=== PATIENT | male | born 1960 | race Caucasian/White ===

== ENCOUNTER 2018-01-11 14:25 | Inpatient (IN) | payer OTHER ==
[~2018-01-11] VITALS: Ht 182.9 cm; Wt 82.3 kg
[~2018-01-11 14:25] MED LIST: ASPI81 PO; EMPA1TAB PO; GLUC1000 PO; METO50TA PO; POLY3.5O RIGHT EYE; ZOCO80TA PO
[2018-01-11 14:34] VITALS: BP 188/67; PULSE 88; RESP 17; TEMP 98.6; O2SAT 96
[2018-01-11] MEDS ORDERED: SODIUM CHLOR 0.9% 1000 ML INJ 1,000 ML IV ONE ×2 (14:51→17:15)
[2018-01-11 15:00] VITALS: O2SAT 100
[2018-01-11] MEDS ORDERED: SODIUM CHLORIDE 0.9% FLUSH 10 ML FLUSH IVF PRN (15:00)
--- NOTE | 2018-01-11 15:15 | PD ---
HPI Chief Complaint: Syncope/Near-Syncope Time Seen by Provider: 14:35 Travel History International Travel<30 days: No Contact w/Intl Traveler<30days: No Traveled to known affect area: No History of Present Illness HPI The patient is 57 years old and arrives to the ER with a complaint of near syncope. 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 He felt slightly dizzy at that point and then after lunch became much more dizzy. 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 The bilingual secretary there called EMS and he was brought here. Evidently his blood pressure was 80/40 on scene. He denies chest pain shortness of breath. No palpitation. He has a history of diabetes and is on metformin. He takes metoprolol for hypertension. He denies any recent change in medication. No recent illness. He reports drinking about 3-4 whiskies daily. PFSH Past Medical History Heart Rhythm Problems: No Cardiac Catheterization: Yes Cardiovascular Problems: Yes High Cholesterol: Yes Congestive Heart Failure: No Diabetes: Yes Diminished Hearing: No Hypertension: Yes Myocardial Infarction: No ?: Unknown Past Surgical History Coronary Artery Bypass Graft: No Coronary Stent: Yes Social History Alcohol Use: Yes (BEER AND WHISKEY DAILY) Tobacco Use: No (FORMER) Substance Use: No Allergies-Medications (Allergen,Severity, Reaction): Coded Allergies: No Known Allergies (Verified Allergy, Unknown, 01/11/18) Reported Meds & Prescriptions Reported Meds & Active Scripts Active Polysporin (Bacitracin/Polymyxin B Sulfate) 3.5 Gm Oint 1 Applic RIGHT EYE Q12 7 Days Reported Jardiance (Empagliflozin) 10 Mg Tab 1 Tab PO DAILY Glucophage 1000 mg (Metformin HCl) 1,000 Mg Tab 1,000 Mg PO DAILY Aspirin 81 Mg Tab 81 Mg PO DAILY Zocor 80 mg (Simvastatin) 80 Mg Tab 80 Mg PO HS Lopressor (Metoprolol Tartrate) 50 Mg Tab 50 Mg PO BID Review of Systems Except as stated in HPI: all other systems reviewed are Neg General / Constitutional: No: Fever Physical Exam Narrative GENERAL: 57-year-old male well-nourished well-developed no acute distress Vital Signs Date Time Temp Pulse Resp B/P (MAP) Pulse Ox O2 Delivery O2 Flow Rate FiO2 01/11/18 14:34 98.6 88 17 188/67 (107) 96 SKIN: Warm and dry. HEAD: Atraumatic. Normocephalic. EYES: Pupils equal and round. No scleral icterus. No injection or drainage. ENT: No nasal bleeding or discharge. Mucous membranes pink and moist. NECK: Trachea midline. No JVD. CARDIOVASCULAR: Regular rate and rhythm. RESPIRATORY: No accessory muscle use. Clear to auscultation. Breath sounds equal bilaterally. GASTROINTESTINAL: Abdomen soft, non-tender, nondistended. Hepatic and splenic margins not palpable. MUSCULOSKELETAL: Extremities without clubbing, cyanosis, or edema. No obvious deformities. NEUROLOGICAL: Awake and alert. No obvious cranial nerve deficits. Motor grossly within normal limits. Five out of 5 muscle strength in the arms and legs. Normal speech. PSYCHIATRIC: Appropriate mood and affect; insight and judgment normal. Data Data Last Documented VS Vital Signs Date Time Temp Pulse Resp B/P (MAP) Pulse Ox O2 Delivery O2 Flow Rate FiO2 01/11/18 15:00 100 Room Air 01/11/18 15:00 65 01/11/18 14:34 98.6 17 188/67 (107) Orders Orders Electrocardiogram (01/11/18 14:51) Complete Blood Count With Diff (01/11/18 14:51) Comprehensive Metabolic Panel (01/11/18 14:51) Magnesium (Mg) (01/11/18 14:51) B-Type Natriuretic Peptide (01/11/18 14:51) Ckmb (Isoenzyme) Profile (01/11/18 14:51) Troponin I (01/11/18 14:51) Act Partial Throm Time (Ptt) (01/11/18 14:51) Prothrombin Time / Inr (Pt) (01/11/18 14:51) Chest, Single Ap (01/11/18 14:51) Ct Brain W/O Iv Contrast(Rout) (01/11/18 14:51) Ecg Monitoring (01/11/18 14:51) Iv Access Insert/Monitor (01/11/18 14:51) Oximetry (01/11/18 14:51) Sodium Chloride 0.9% Flush (Ns Flush) (01/11/18 15:00) Sodium Chlor 0.9% 1000 Ml Inj (Ns 1000 M (01/11/18 14:51) Orthostatic Vital Signs (01/11/18 14:51) D-Dimer (01/11/18 14:51) CKMB (01/11/18 15:20) CKMB% (01/11/18 15:20) Sodium Chlor 0.9% 1000 Ml Inj (Ns 1000 M (01/11/18 17:15) Insulin Human Regular Inj (Novolin R Inj (01/11/18 17:15) Admit Order (Ed Use Only) (01/11/18 ) German Instructor / Telemetry RAH.Q8H (01/11/18 17:03) Vital Signs (Adult) Q4H (01/11/18 17:03) Diet 1999 Ada Cons Carb (01/11/18 Dinner) Activity Oob With Assistance (01/11/18 17:03) Labs Laboratory Tests Test 01/11/18 15:20 White Blood Count 8.4 TH/MM3 Red Blood Count 4.41 MIL/MM3 Hemoglobin 15.3 GM/DL Hematocrit 43.5 % Mean Corpuscular Volume 98.6 FL Mean Corpuscular Hemoglobin 34.7 PG Mean Corpuscular Hemoglobin Concent 35.3 % Red Cell Distribution Width 12.4 % Platelet Count 129 TH/MM3 Mean Platelet Volume 9.7 FL Neutrophils (%) (Auto) 82.8 % Lymphocytes (%) (Auto) 9.2 % Monocytes (%) (Auto) 6.5 % Eosinophils (%) (Auto) 1.2 % Basophils (%) (Auto) 0.3 % Neutrophils # (Auto) 6.9 TH/MM3 Lymphocytes # (Auto) 0.8 TH/MM3 Monocytes # (Auto) 0.5 TH/MM3 Eosinophils # (Auto) 0.1 TH/MM3 Basophils # (Auto) 0.0 TH/MM3 CBC Comment DIFF FINAL Differential Comment Prothrombin Time 11.0 SEC Prothromb Time International Ratio 1.1 RATIO Activated Partial Thromboplast Time 23.3 SEC D-Dimer Quantitative (PE/DVT) 0.29 MG/L FEU Blood Urea Nitrogen 36 MG/DL Creatinine 3.34 MG/DL Random Glucose 434 MG/DL Total Protein 7.3 GM/DL Albumin 3.8 GM/DL Calcium Level 11.1 MG/DL Magnesium Level 2.0 MG/DL Alkaline Phosphatase 58 U/L Aspartate Amino Transf (AST/SGOT) 84 U/L Alanine Aminotransferase (ALT/SGPT) 76 U/L Total Bilirubin 1.4 MG/DL Sodium Level 132 MEQ/L Potassium Level 4.5 MEQ/L Chloride Level 96 MEQ/L Carbon Dioxide Level 23.8 MEQ/L Anion Gap 12 MEQ/L Estimat Glomerular Filtration Rate 19 ML/MIN Total Creatine Kinase 136 U/L Creatine Kinase MB 4.5 NG/ML Troponin I LESS THAN 0.02 NG/ML MDM Medical Decision Making Medical Screen Exam Complete: Yes Emergency Medical Condition: Yes Medical Record Reviewed: Yes Differential Diagnosis Dehydration, electrolyte imbalance, renal failure, anemia Narrative Course CBC & BMP Diagram 01/11/18 15:20 Total Protein 7.3, Albumin 3.8, Calcium Level 11.1 H, Magnesium Level 2.0, Alkaline Phosphatase 58, Aspartate Amino Transf (AST/SGOT) 84 H, Alanine Aminotransferase (ALT/SGPT) 76, Total Bilirubin 1.4 H EKG shows no preexcitation or dysrhythmic morphology or ischemic injury pattern Patient has new onset renal failure of indeterminate etiology. Patient has acute kidney injury. 10 units insulin added on for hyperglycemia at 434 A second liter of saline added. d/w Dr Wallace for [facility] Diagnosis Primary Impression: Near syncope Additional Impressions: KENNEDY (acute kidney injury) DM2 (diabetes mellitus, type 2) Qualified Codes: E11.22 - Type 2 diabetes mellitus with diabetic chronic kidney disease; Z79.4 - long-term (current) use of insulin Dehydration Admitting Information Admitting Physician Requests: Admit Garry James MD January 11, 2018 15:14
[2018-01-11 15:50] LABS: AUTOMATED NEUTROPHIL # 6.9 TH/MM3 (1.8-7.7); BASOPHIL % 0.3 % (0.0-2.0); EOSINOPHIL # 0.1 TH/MM3 (0-0.4); EOSINOPHIL % 1.2 % (0.0-4.0); HEMATOCRIT 43.5 % (39.0-51.0); HEMOGLOBIN 15.3 GM/DL (13.0-17.0); LYMPH % 9.2 % (9.0-44.0); LYMPHOCYTE # 0.8 TH/MM3 (1.0-4.8); MEAN CELL VOLUME 98.6 FL (80.0-100.0); MEAN CORPUSCULAR HEMOGLOBIN 34.7 PG (27.0-34.0); MEAN CORPUSCULAR HGB CONC 35.3 % (32.0-36.0); MEAN PLATELET VOLUME 9.7 FL (7.0-11.0); MONO % 6.5 % (0.0-8.0); MONOCYTE # 0.5 TH/MM3 (0-0.9); NEUT % 82.8 % (16.0-70.0); PLATELET COUNT 129 TH/MM3 (150-450); RED BLOOD COUNT 4.41 MIL/MM3 (4.50-5.90); RED CELL DISTRIBUTION WIDTH 12.4 % (11.6-17.2); WHITE BLOOD COUNT 8.4 TH/MM3 (4.0-11.0)
[2018-01-11 16:15] LABS: ALBUMIN 3.8 GM/DL (3.4-5.0); ALKALINE PHOSPHATASE 58 U/L (45-117); ALT (GPT) 76 U/L (12-78); AST (GOT) 84 U/L (15-37); BICARBONATE 23.8 MEQ/L (21.0-32.0); BLOOD UREA NITROGEN 36 MG/DL (7-18); CALCIUM 11.1 MG/DL (8.5-10.1); CHLORIDE 96 MEQ/L (98-107); CREATININE 3.34 MG/DL (0.60-1.30); GLOMERULAR FILTRATION RATE 19 ML/MIN (>89); GLUCOSE,RANDOM 434 MG/DL (74-106); SODIUM (NA) 132 MEQ/L (136-145); TOTAL BILIRUBIN ADULT 1.4 MG/DL (0.2-1.0); TOTAL PROTEIN 7.3 GM/DL (6.4-8.2); TROPONIN I LESS THAN 0.02 NG/ML (0.02-0.05)
--- NOTE | 2018-01-11 16:21 | RADRPT ---
EXAM DATE/TIME: 01/11/2018 14:56 [facility] COMPARISON: No previous studies available for comparison. INDICATIONS : Dizzy, high blood pressure at work, brought in by evac MEDICAL HISTORY : Myocardial infarction. SURGICAL HISTORY : Coronary artery stent. ENCOUNTER: Initial ACUITY: 1 day PAIN SCORE: 0/10 LOCATION: Bilateral chest FINDINGS: A single view of the chest demonstrates the lungs to be symmetrically aerated without evidence of mas s, infiltrate or effusion. Minimal linear atelectasis or scarring laterally in the left lung base. He art size is borderline prominent but well compensated. Osseous structures are intact. CONCLUSION: 1. Minimal linear atelectasis/scarring laterally in the left lung base. Lungs are otherwise clear. 2. Heart size is borderline prominent but well compensated. Hardik Espinoza MD on January 11, 2018 at 16:18 Board Certified Radiologist. This report was verified electronically.
[2018-01-11 16:34] LABS: INTERNATIONAL NORMALIZED RATIO 1.1 RATIO
--- NOTE | 2018-01-11 16:34 | RADRPT ---
EXAM DATE/TIME: 01/11/2018 15:18 [facility] COMPARISON: No previous studies available for comparison. INDICATIONS : Dizziness RADIATION DOSE: 56.35 CTDIvol (mGy) MEDICAL HISTORY : Cardiovascular disease. Hypertension. Diabetes SURGICAL HISTORY : None. ENCOUNTER: Initial ACUITY: 1 day PAIN SCALE: 0/10 LOCATION: cranial TECHNIQUE: Multiple contiguous axial images were obtained of the head. Using automated exposure control and adj ustment of the mA and/or kV according to patient size, radiation dose was kept as low as reasonably a chievable to obtain optimal diagnostic quality images. DICOM format image data is available electro nically for review and comparison. FINDINGS: CEREBRUM: The ventricles are normal for age. No evidence of midline shift, mass lesion, hemorrhage or acute in farction. No extra-axial fluid collections are seen. POSTERIOR FOSSA: The cerebellum and brainstem are intact. The 4th ventricle is midline. The cerebellopontine angle i s unremarkable. EXTRACRANIAL: The visualized portion of the orbits is intact. SKULL: The calvaria is intact. No evidence of skull fracture. CONCLUSION: Negative exam. Hardik Espinoza MD on January 11, 2018 at 16:31 Board Certified Radiologist. This report was verified electronically.
[2018-01-11 16:45] LABS: D-DIMER 0.29 MG/L FEU (0.00-0.50)
--- NOTE | 2018-01-11 17:07 | HHI.HP ---
HPI Service [facility] Hospitalists Primary Care Physician Jose Gloria MD Admission Diagnosis near syncope, dehydration, KENNEDY Chief Complaint: near syncope Travel History International Travel<30 Days: No Contact w/Intl Traveler <30 Da: No Traveled to Known Affected Are: No History of Present Illness 57 years old male with history of coronary artery disease, diabetes and hypertension who arrives to the ER with a complaint of near syncope. 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 He felt slightly dizzy at that point and then after lunch became much more dizzy while working. He drove to the [employer] office and while putting supplies away became severely dizzy and nearly lost consciousness. The medical office secretary there called EMS and he was brought here. Evidently his blood pressure was 80/40 on scene. He denies chest pain shortness of breath. No palpitations. No similar episodes previously. He has a history of diabetes and is on metformin. He takes metoprolol for hypertension. He denies any recent change in medication. No recent illness. He reports drinking about 3-4 whiskies each night. Generally takes 3-5 bottles of water with him when working outside. Urine output had been normal but was a little diminished today per his report. Denies any fevers or chills. Denies flank pain. Denies any nausea vomiting or diarrhea. Evaluation in the ER noted for acute kidney injury with creatinine around 3-1/2 (baseline around 0.9) , calcium of 11.1 and blood sugar of 434. He has been started on IV fluid and given IV insulin. Patient reports he "feels terrific now". Review of Systems Constitutional: COMPLAINS OF: Diaphoretic episodes, Fatigue, Dizziness, DENIES : Fever, Weight gain, Weight loss, Chills, Change in appetite, Night Sweats Endocrine: DENIES: Heat/cold intolerance, Polydipsia, Polyuria, Polyphagia Eyes: DENIES: Blurred vision, Diplopia, Eye inflammation, Eye pain, Vision loss , Photosensitivity, Double Vision Ears, nose, mouth, throat: DENIES: Tinnitus, Hearing loss, Vertigo, Nasal discharge, Oral lesions, Throat pain, Hoarseness, Ear Pain, Running Nose, Epistaxis, Sinus Pain, Toothache, Odynophagia Respiratory: DENIES: Apneas, Cough, Snoring, Wheezing, Hemoptysis, Sputum production, Shortness of breath Cardiovascular: DENIES: Chest pain, Palpitations, Syncope, Dyspnea on Exertion , PND, Lower Extremity Edema, Orthopnea, Claudication Gastrointestinal: DENIES: Abdominal pain, Black stools, Bloody stools, BRB per rectum, Constipation, Diarrhea, GERD, Nausea, Reflux, Vomiting, Difficulty Swallowing, Anorexia, See HPI Musculoskeletal: COMPLAINS OF: Joint pain, DENIES: Muscle aches, Stiffness, Joint Swelling, Back pain, Neck pain Hematologic/lymphatic: DENIES: Bruising, Lymphadenopathy Immunologic/allergic: DENIES: Eczema, Urticaria Neurologic: DENIES: Abnormal gait, Headache, Localized weakness, Paresthesias, Seizures, Speech Problems, Tremor, Poor Balance Psychiatric: DENIES: Anxiety, Confusion, Mood changes, Depression, Hallucinations, Agitation, Suicidal Ideation, Homicidal Ideation, Delusions, History of Bipolar, History of Schizophrenia Past Family Social History Past Medical History CAD DM2 with nephropathy/neuropathy CKD2 (GFR typically in upper 80-90 range) Hyperlipidemia HTN Old DE Past Surgical History PTCA with stent in left cfx 2009 colonoscopy Reported Medications Atorvastatin 40mg/d Glimepiride 4mg/d. Lisinopril 10mg/d. Metoprolol 50mg bid MVI one daily Allergies: Coded Allergies: No Known Allergies (Verified Allergy, Unknown, 01/11/18) Family History Father had DE in his 70s, paternal grandfather of an DE at age 57 Social History No tobacco since 2010, prior to that smoked a pack per day for over 20 years Drinks 3-5 dilute whiskey and cummings each night, denies ever having any withdrawal symptoms of alcohol Denies illicit drug use , most recently for 5 years Originally from [place], moved here 30 years ago and has been working for the [employer] for 26 years. 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 Physical Exam Vital Signs Vital Signs Date Time Temp Pulse Resp B/P (MAP) Pulse Ox O2 Delivery O2 Flow Rate FiO2 01/11/18 15:00 100 Room Air 01/11/18 15:00 65 Room Air 01/11/18 14:34 98.6 88 17 188/67 (107) 96 Physical Exam GENERAL: This is a well-nourished, well-developed patient, in no apparent distress. Alert and oriented. Cooperative. SKIN: Slight sunburn on upper torso and face. No rashes, ecchymoses or lesions. Cool and dry. HEAD: Atraumatic. Normocephalic. No temporal or scalp tenderness. EYES: Pupils equal round and reactive. Extraocular motions intact. No scleral icterus. No injection or drainage. ENT: Nose without bleeding, purulent drainage or septal hematoma. Airway patent. NECK: Trachea midline. No JVD or lymphadenopathy. Supple, nontender, no meningeal signs. CARDIOVASCULAR: Regular rate and rhythm without murmurs, gallops, or rubs. RESPIRATORY: Clear to auscultation. Breath sounds equal bilaterally. No wheezes , rales, or rhonchi. GASTROINTESTINAL: Abdomen soft, non-tender, nondistended. No hepato-splenomegaly , or palpable masses. No guarding. MUSCULOSKELETAL: Extremities without clubbing, cyanosis, or edema. No joint tenderness, effusion, or edema noted. No calf tenderness. NEUROLOGICAL: Awake and alert. Cranial nerves II through XII intact. Motor and sensory grossly within normal limits. Five out of 5 muscle strength in all muscle groups. Normal speech. Laboratory Laboratory Tests Test 01/11/18 15:20 White Blood Count 8.4 Red Blood Count 4.41 Hemoglobin 15.3 Hematocrit 43.5 Mean Corpuscular Volume 98.6 Mean Corpuscular Hemoglobin 34.7 Mean Corpuscular Hemoglobin Concent 35.3 Red Cell Distribution Width 12.4 Platelet Count 129 Mean Platelet Volume 9.7 Neutrophils (%) (Auto) 82.8 Lymphocytes (%) (Auto) 9.2 Monocytes (%) (Auto) 6.5 Eosinophils (%) (Auto) 1.2 Basophils (%) (Auto) 0.3 Neutrophils # (Auto) 6.9 Lymphocytes # (Auto) 0.8 Monocytes # (Auto) 0.5 Eosinophils # (Auto) 0.1 Basophils # (Auto) 0.0 CBC Comment DIFF FINAL Differential Comment Prothrombin Time 11.0 Prothromb Time International Ratio 1.1 Activated Partial Thromboplast Time 23.3 D-Dimer Quantitative (PE/DVT) 0.29 Blood Urea Nitrogen 36 Creatinine 3.34 Random Glucose 434 Total Protein 7.3 Albumin 3.8 Calcium Level 11.1 Magnesium Level 2.0 Alkaline Phosphatase 58 Aspartate Amino Transf (AST/SGOT) 84 Alanine Aminotransferase (ALT/SGPT) 76 Total Bilirubin 1.4 Sodium Level 132 Potassium Level 4.5 Chloride Level 96 Carbon Dioxide Level 23.8 Anion Gap 12 Estimat Glomerular Filtration Rate 19 Total Creatine Kinase 136 Creatine Kinase MB 4.5 Troponin I LESS THAN 0.02 Result Diagram: 01/11/18 1520 01/11/18 1520 Imaging Last [address] 01/11/18 1451 Signed Impressions: Service Date/Time: January 15:18 - CONCLUSION: Negative exam. Hardik Espinoza MD Chest X-Ray 01/11/18 1451 Signed Impressions: Service Date/Time: January 14:56 - CONCLUSION: 1. Minimal linear atelectasis/scarring laterally in the left lung base. Lungs are otherwise clear. 2. Heart size is borderline prominent but well compensated. MD Stewart Epstein VTE Risk Assessment Stewart VTE Risk Assessment: Mod/High Risk (score >= 2) Caprini Risk Assessment Model Point Value = 1 Point Value = 2 Point Value = 3 Point Value = 5 Age 41-60 Minor surgery BMI > 25 kg/m2 Swollen legs Varicose veins or History of unexplained or recurrent spontaneous Oral contraceptives or hormone replacement Sepsis (< 1 month) Serious lung disease, including pneumonia (< 1 month) Abnormal pulmonary function Acute myocardial infarction Congestive heart failure (< 1 month) History of inflammatory bowel disease Medical patient at bed rest Age 61-74 Arthroscopic surgery Major open surgery (> 45 min) Laparoscopic surgery (> 45 min) Malignancy Confined to bed (> 72 hours) Immobilizing plaster cast Central venous access Age >= 75 History of VTE Family history of VTE Factor V Leiden Prothrombin [id number] Lupus anticoagulant Anticardiolipin antibodies Elevated serum homocysteine Heparin-induced thrombocytopenia Other congenital or acquired thrombophilia Stroke (< 1 month) Elective arthroplasty Hip, pelvis, or leg fracture Acute spinal cord injury (< 1 month) Prophylaxis Regimen Total Risk Factor Score Risk Level Prophylaxis Regimen 0-1 Low Early ambulation 2 Moderate Order ONE of the following: *Sequential Compression Device (SCD) *Heparin 5000 units SQ BID 3-4 Higher Order ONE of the following medications: *Heparin 5000 units SQ TID *Enoxaparin/Lovenox 40 mg SQ daily (WT < 150 kg, CrCl > 30 mL/min) *Enoxaparin/Lovenox 30 mg SQ daily (WT < 150 kg, CrCl > 10-29 mL/min) *Enoxaparin/Lovenox 30 mg SQ BID (WT < 150 kg, CrCl > 30 mL/min) AND/OR *Sequential Compression Device (SCD) 5 or more Highest Order ONE of the following medications: *Heparin 5000 units SQ TID (Preferred with Epidurals) *Enoxaparin/Lovenox 40 mg SQ daily (WT < 150 kg, CrCl > 30 mL/min) *Enoxaparin/Lovenox 30 mg SQ daily (WT < 150 kg, CrCl > 10-29 mL/min) *Enoxaparin/Lovenox 30 mg SQ BID (WT < 150 kg, CrCl > 30 mL/min) AND *Sequential Compression Device (SCD) Assessment and Plan Problem List: (1) Near syncope ICD Codes: R55 - Syncope and collapse Status: Acute Plan: likely a/w dehydration, heat exhaustion. IVF. monitor labs, vitals. Clinically much improved since IV fluid administration. (2) DM2 (diabetes mellitus, type 2) ICD Codes: E11.9 - Type 2 diabetes mellitus without complications Status: Chronic Plan: Will cover with sliding scale insulin while inpatient. Will hold metformin and other oral hypoglycemics at this point. (3) KENNEDY (acute kidney injury) ICD Codes: N17.9 - Acute kidney failure, unspecified Status: Acute Plan: IVF, monitor i/o. Follow labs. (4) Dehydration ICD Codes: E86.0 - Dehydration Status: Acute Plan: IVF, monitor labs and vital signs (5) Alcohol use ICD Codes: Z78.9 - Other specified health status Status: Chronic Plan: CIWA protocol. IVF Code Status Full Discussed Condition With Patient and ER provider Problem Qualifiers (1) DM2 (diabetes mellitus, type 2): Qualified Codes: E11.22 - Type 2 diabetes mellitus with diabetic chronic kidney disease; Z79.4 - termite control service representative (current) use of insulin Shane Wallace MD PhD January 11, 2018 17:07
[2018-01-11] MEDS ORDERED: LORazepam 2 MG TAB PO PRN (17:15)
[2018-01-11] MEDS ORDERED: INSULIN HUMAN REGULAR 1,000 UNITS/10 ML VIAL IV PUSH ONE (17:15)
[2018-01-11] MEDS ORDERED: LORazepam 2 MG/ML VIAL IV PUSH PRN ×4 (17:15)
[2018-01-11] MEDS ORDERED: LORazepam 1 MG TAB PO PRN (17:15)
[2018-01-11] MEDS ORDERED: FLUMAZENIL 0.5 MG/5 ML VIAL IV PUSH PRN (17:15)
[2018-01-11 17:19] VITALS: BP 132/92; PULSE 90; RESP 18; O2SAT 96
[2018-01-11] MEDS: SODIUM CHLOR 0.9% 1000 ML INJ 1,000 ML IV SCH (18:03)
[2018-01-11] MEDS ORDERED: ASPI-516 CHEW (18:40)
[2018-01-11] MEDS ORDERED: METO50TA PO (18:40)
[2018-01-11] MEDS ORDERED: METF1000 PO (18:40)
[2018-01-11] MEDS ORDERED: SIMV80TA PO (18:40)
[2018-01-11 20:00] VITALS: BP 126/79; PULSE 74; PULSE 75; RESP 20; TEMP 98.3; O2SAT 97
[2018-01-11] MEDS: INSULIN ASPART SUPPLEMENTAL SCALE SQ SCH (21:24)
[2018-01-12] VITALS: BP 128/74; PULSE 74; PULSE 76; RESP 20; TEMP 97.8; O2SAT 98
[2018-01-12] MEDS: SODIUM CHLOR 0.9% 1000 ML INJ 1,000 ML IV SCH ×2 (03:00→13:15)
[2018-01-12 04:00] VITALS: BP 122/70; PULSE 77; PULSE 79; RESP 18; TEMP 98.1; O2SAT 96
[2018-01-12 07:46] LABS: ALBUMIN 3.5 GM/DL (3.4-5.0); ALKALINE PHOSPHATASE 53 U/L (45-117); ALT (GPT) 77 U/L (12-78); AST (GOT) 87 U/L (15-37); BICARBONATE 28.3 MEQ/L (21.0-32.0); BLOOD UREA NITROGEN 22 MG/DL (7-18); CALCIUM 9.2 MG/DL (8.5-10.1); CHLORIDE 100 MEQ/L (98-107); CREATININE 1.45 MG/DL (0.60-1.30); GLOMERULAR FILTRATION RATE 50 ML/MIN (>89); GLUCOSE,RANDOM 187 MG/DL (74-106); SODIUM (NA) 137 MEQ/L (136-145); TOTAL BILIRUBIN ADULT 1.4 MG/DL (0.2-1.0); TOTAL PROTEIN 6.9 GM/DL (6.4-8.2)
[2018-01-12] MEDS: INSULIN ASPART SUPPLEMENTAL SCALE SQ SCH ×2 (07:50→12:00)
[2018-01-12 08:00] VITALS: BP_SYST 110; BP_SYST 118; BP_DIAS 76; BP_DIAS 77; PULSE 73; PULSE 80; RESP 16; TEMP 98.3; O2SAT 96
[2018-01-12 12:00] VITALS: BP 149/81; PULSE 81; PULSE 86; RESP 16; TEMP 97.8; O2SAT 96
--- NOTE | 2018-01-12 13:21 | HHI.DCPOC ---
Discharge Care Plan Diagnosis: (1) Dehydration (2) KENNEDY (acute kidney injury) (3) Near syncope Goals to Promote Your Health * To prevent worsening of your condition and complications * To maintain your health at the optimal level Directions to Meet Your Goals Take your medications as prescribed Follow your dietary instruction Follow activity as directed Keep your appointments as scheduled Take your immunizations and boosters as scheduled If your symptoms worsen call your PCP, if no PCP go to Urgent Care Center or Emergency Room Smoking is Dangerous to Your Health. Avoid second hand smoke Call the 24-hour hour crisis hotline for domestic abuse at Jeanie Hernandez January 12, 2018 13:21
--- NOTE | 2018-01-12 13:27 | HHI.DS ---
Discharge Summary Admission Date January 11, 2018 at 17:06 Discharge Date: January 12, 2018 Admitting Diagnosis near syncope, dehydration, KENNEDY (1) Near syncope ICD Codes: R55 - Syncope and collapse Status: Acute (2) DM2 (diabetes mellitus, type 2) ICD Codes: E11.9 - Type 2 diabetes mellitus without complications Status: Chronic (3) KENNEDY (acute kidney injury) ICD Codes: N17.9 - Acute kidney failure, unspecified Status: Acute (4) Dehydration ICD Codes: E86.0 - Dehydration Status: Acute (5) Alcohol use ICD Codes: Z78.9 - Other specified health status Status: Chronic Consultants None Procedures None Brief History 57 years old male with history of coronary artery disease, diabetes and hypertension who arrives to the ER with a complaint of near syncope. 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 He felt slightly dizzy at that point and then after lunch became much more dizzy while working. He drove to the [place] [employer] office and while putting supplies away became severely dizzy and nearly lost consciousness. The membership secretary there called EMS and he was brought here. Evidently his blood pressure was 80/40 on scene. He denies chest pain shortness of breath. No palpitations. No similar episodes previously. He has a history of diabetes and is on metformin. He takes metoprolol for hypertension. He denies any recent change in medication. No recent illness. He reports drinking about 3-4 whiskies each night. Generally takes 3-5 bottles of water with him when working outside. Urine output had been normal but was a little diminished today per his report. Denies any fevers or chills. Denies flank pain. Denies any nausea vomiting or diarrhea. Evaluation in the ER noted for acute kidney injury with creatinine around 3-1/2 (baseline around 0.9) , calcium of 11.1 and blood sugar of 434. He has been started on IV fluid and given IV insulin. Patient reports he "feels terrific now". CBC/BMP: 01/11/18 1520 01/12/18 0618 Significant Findings Laboratory Tests Test 01/11/18 15:20 01/12/18 06:18 Red Blood Count 4.41 MIL/MM3 (4.50-5.90) Mean Corpuscular Hemoglobin 34.7 PG (27.0-34.0) Platelet Count 129 TH/MM3 (150-450) Neutrophils (%) (Auto) 82.8 % (16.0-70.0) Lymphocytes # (Auto) 0.8 TH/MM3 (1.0-4.8) Activated Partial Thromboplast Time 23.3 SEC (24.3-30.1) Blood Urea Nitrogen 36 MG/DL (7-18) 22 MG/DL (7-18) Creatinine 3.34 MG/DL (0.60-1.30) 1.45 MG/DL (0.60-1.30) Random Glucose 434 MG/DL (74-106) 187 MG/DL (74-106) Calcium Level 11.1 MG/DL (8.5-10.1) Aspartate Amino Transf (AST/SGOT) 84 U/L (15-37) 87 U/L (15-37) Total Bilirubin 1.4 MG/DL (0.2-1.0) 1.4 MG/DL (0.2-1.0) Sodium Level 132 MEQ/L (136-145) Chloride Level 96 MEQ/L (98-107) Estimat Glomerular Filtration Rate 19 ML/MIN (>89) 50 ML/MIN (>89) Creatine Kinase MB 4.5 NG/ML (0.5-3.6) Troponin I LESS THAN 0.02 NG/ML Imaging Last Impressions Head CT 01/11/181450 Signed Impressions: Service Date/Time: January 15:18 - CONCLUSION: Negative exam. Hardik Espinoza MD Chest X-Ray 01/11/181450 Signed Impressions: Service Date/Time: January 14:56 - CONCLUSION: 1. Minimal linear atelectasis/scarring laterally in the left lung base. Lungs are otherwise clear. 2. Heart size is borderline prominent but well compensated. Hardik Espinoza MD PE at Discharge GENERAL: This is a well-nourished, well-developed patient, in no apparent distress. CARDIOVASCULAR: Regular rate and rhythm RESPIRATORY: Clear to auscultation. Breath sounds equal bilaterally. GASTROINTESTINAL: Abdomen soft, non-tender, nondistended. Normal active bowel sounds MUSCULOSKELETAL: Extremities without clubbing, cyanosis, or edema. NEURO: Alert & Oriented x4 to person, place, time, situation. Moves all ext x4 Hospital Course Near syncope likely a/w dehydration, heat exhaustion. IVF. monitor labs, vitals. Clinically much improved since IV fluid administration. Patient's home Metoprolol 50 mg PO BID has been held while in the hospital BP acceptable At DC instructed patient to no longer take metoprolol at this time. Patient instructed to keep a BP log and resume metoprolol if BP or HR become elevated. Patient to follow up with PCP in 1 week for further monitoring DM2 (diabetes mellitus, type 2) Will cover with sliding scale insulin while inpatient. Will hold metformin and other oral hypoglycemics at this point. KENNEDY (acute kidney injury) IVF, monitor i/o. on admission creatinine 3.34 -> (01/12) 1.45 Dehydration- improved with IVF IVF, monitor labs and vital signs Alcohol use CIWA protocol. IVF Patient's AST elevated 84 Patient counselled to cut back and abstain from ETOH use Pt Condition on Discharge: Stable Discharge Disposition: Discharge Home Discharge Instructions DIET: Follow Instructions for: Diabetic Diet Activities you can perform: Regular-No Restrictions Follow up Referrals: PCP Follow-up - [address] Gloria Continued Medications: Aspirin (Aspirin) 81 Mg Chew 81 MG CHEW DAILY, TAB 0 Refills Metformin (Metformin) 1,000 Mg Tab 1000 MG PO BIDPC for Blood Sugar Management, #60 TAB 0 Refills Simvastatin (Simvastatin) 80 Mg Tab 80 MG PO DAILY for Cholesterol Management, #30 TAB 0 Refills Discontinued Medications: Metoprolol Tartrate (Metoprolol Tartrate) 50 Mg Tab 50 MG PO BID, #60 TAB 0 Refills Jeanie Hernandez January 12, 2018 13:27
[2018-01-12 16:00] VITALS: BP 130/80; PULSE 53; RESP 18; TEMP 97.8; O2SAT 96
--- NOTE | 2018-01-13 08:44 | EKG ---
Date Performed: 01/11/2018 Time Performed: 15:09:46 PTAGE: 57 years EKG: Sinus rhythm POSSIBLE RIGHT VENTRICULAR CONDUCTION DELAY INFERIOR MYOCARDIAL INFARCTION ABNORMAL ECG PREVIOUS TRACING : 05/12/2010 11.47 DOCTOR: Daniela Gill Interpretating Date/Time 01/13/2018 08:40:33
== END 2018-01-12 15:30 | disposition home or self-care (01) | DRG 923 ==
LOC: NEPE 14:25 → NEDA 17:06 → N04A 19:26
PROVIDERS: ADMIT Family Medicine; ATTEND Family Medicine
DX: T67.5XXA Heat exhaustion, unspecified, initial encounter (principal); N17.9 Acute kidney failure, unspecified; E11.21 Type 2 diabetes mellitus with diabetic nephropathy; E11.40 Type 2 diabetes mellitus with diabetic neuropathy, unspecified; E86.0 Dehydration; E11.22 Type 2 diabetes mellitus with diabetic chronic kidney disease; N18.2 Chronic kidney disease, stage 2 (mild); E78.5 Hyperlipidemia, unspecified; I12.9 Hypertensive chronic kidney disease with stage 1 through stage 4 chronic kidney disease, or unspecified chronic kidney disease; R55 Syncope and collapse; I25.10 Atherosclerotic heart disease of native coronary artery without angina pectoris; Z95.5 Presence of coronary angioplasty implant and graft; Z87.891 Personal history of nicotine dependence; I25.2 Old myocardial infarction
CPT/HCPCS: 70450; 71045; 80053; 82550; 82552; 82948; 83735; 83880; 84484; 85025; 85379; 85610; 85730; 93005; 96360; 96361; J1815; J7030